=== PATIENT | female | born 1970 | race African-American/Black ===

== ENCOUNTER 2023-09-11 00:56 | Emergency (ER) | payer OTHER ==
[~2023-09-11] VITALS: Ht 157.5 cm; Wt 61.0 kg
[2023-09-11 01:23] VITALS: O2SAT 98
[2023-09-11 03:07] LABS: CLARITY URINE CLOUDY (CLEAR); COLOR URINE YELLOW (YELLOW); GLUCOSE URINE NEGATIVE (NEGATIVE); KETONES URINE TRACE (NEGATIVE); LEUKOCYTE ESTERASE URINE NEGATIVE (NEGATIVE); NITRITE URINE NEGATIVE (NEGATIVE); OCCULT BLOOD URINE NEGATIVE (NEGATIVE); PROTEIN URINE NEGATIVE (NEGATIVE); SPECIFIC GRAVITY URINE 1.031 (1.005-1.030)
[2023-09-11 03:47] LABS: BACTERIA URINE 1+; RBC URINE NONE SEEN /hpf (0-2); SQUAMOUS EPITHELIAL CELL URINE 2+ /lpf (RARE/1+); URIC ACID CRYSTALS URINE 1+ /lpf; WBC URINE 0-2 /hpf (0-2)
[2023-09-11] MEDS ORDERED: CEFTRIAXONE SODIUM 500 MG/VIAL IM ONE (06:00)
[2023-09-11] MEDS ORDERED: LIDOCAINE HCL 1% 20ML VIAL (Pyxis) INJ INFIL ONE (06:30)
[2023-09-11 07:00] VITALS: BP 123/78; PULSE 77; RESP 18; TEMP 98.4
[2023-09-11] MEDS ORDERED: METR-167 MT (07:12)
[2023-09-11] MEDS ORDERED: DOXY100T2 MT (07:12)
[2023-09-13 04:07] LABS: CHLAMYDIA TRACHOMATIS NAA Positive (Negative); NEISSERIA GONORRHOEAE NAA Positive (Negative)
== END 2023-09-11 07:58 | disposition home or self-care (01) ==
LOC: ER 00:56
DX: N76.89 Other specified inflammation of vagina and vulva (principal); I10 Essential (primary) hypertension
CPT/HCPCS: 87491; 87591; 81003; 81025; 87210; 96372; 99284; J0696; J3490; Z7610